=== PATIENT | female | born 1985 ===

== ENCOUNTER 2020-05-02 12:53 | Outpatient (CLI) | payer OTHER | END 2020-05-02 18:00 | disposition home or self-care (01) | LOC: PPH VACUNA 12:53 | DX: Z23 Encounter for immunization (principal) ==

== ENCOUNTER → 2021-02-13 | Outpatient (CLI) | payer OTHER | END | disposition home or self-care (01) | LOC: PPH VACUNA 08:00 | PROVIDERS: ATTEND Emergency Medicine Pediatric Emergency Medicine | DX: Z23 Encounter for immunization (principal) ==

== ENCOUNTER 2021-04-19 11:00 | Outpatient (CLI) | payer OTHER | END 2021-04-19 11:20 | disposition home or self-care (01) | LOC: PPH VACUNA 11:00 | PROVIDERS: ATTEND Emergency Medicine Pediatric Emergency Medicine | DX: Z23 Encounter for immunization (principal) | CPT/HCPCS: 90686; G0008 ==

== ENCOUNTER 2022-02-06 10:01 | Outpatient (CLI) | payer OTHER | END 2022-02-06 10:06 | disposition home or self-care (01) | LOC: PPH VACUNA 10:01 | PROVIDERS: ATTEND Emergency Medicine Pediatric Emergency Medicine | DX: Z23 Encounter for immunization (principal) ==

== ENCOUNTER 2022-04-26 09:46 | Outpatient (CLI) | payer OTHER | END 2022-04-26 09:56 | disposition home or self-care (01) | LOC: PPH VACUNA 09:46 | PROVIDERS: ATTEND Emergency Medicine Pediatric Emergency Medicine | DX: Z23 Encounter for immunization (principal) ==